=== PATIENT | female | born 2000 | race Caucasian/White ===

== ENCOUNTER → 2024-08-02 13:13 | Outpatient (BNVA) | payer OTHER, SELFPAY | DX: K21.9 Gastro-esophageal reflux disease without esophagitis (principal); E66.01 Morbid (severe) obesity due to excess calories; Z68.41 Body mass index [BMI] 40.0-44.9, adult; Z71.3 Dietary counseling and surveillance | CPT/HCPCS: 96127; 99202 ==

== ENCOUNTER → 2024-08-02 14:05 | Outpatient (AMB) | payer OTHER, SELFPAY ==
--- NOTE | 2024-08-02 13:18 | MHC.PC.OV ---
Vital Signs 08/02/24 13:20 Height 5 ft 4.17 in Weight 257 lb 6 oz BMI 43.9 BP 130/76 Blood Pressure Location Lt brachial Position Sitting Pulse 95 Pulse Source Pulse Oximeter Temp 97.7 F Temp Source Skin Pulse Oximetry (%) 100 Oxygen Delivery Method Room Air Intake Visit Reasons: establish care Intake Note: Patient is a new patient here to establish care for Anxiety, Obesity, Weight concern. Transferring care from [facility]. Medical records have not been requested and have not received. Chairman And Ceo Required: No Paper Control Clerk: Not Required per policy Accompanied by: Self / Same As Patient Allergies No Known Allergies Allergy (Verified 08/02/24 13:33) Medication List - Last Reconciled 08/02/24 by Danielle Membreno PA-C No Known Home Meds Tobacco use date assessed: 08/02/24 Dental Screening Dental Screen Date: 08/02/24 Did you have a dental visit in the last 12 months?: No Did you have a dental problem in the last 6 months where you did not have access to dental care?: No Was dental information given to patient?: No HPI establish care HPI Details 24 year old female coming to the office for the first time. Patient tells us today she has not had a PCP previously. She was following with an OB school year nanny during the her he has been this has not seen any other ophthalmic medical assistant. She has a history [facility] but has not been but on control and over a year. She has several concerns today the 1st being anxiety which he states his every day and limits her daily functioning. Her anxiety typically manifests as sweaty palms, abdominal pain and occasionally panic attacks. She also mentions concern for weight gain states she has had difficulty losing weight over the last several years and would like to pursue weight loss injections. Lastly she mentions having issues with acid reflux and was pretty occasion during her which helped with the reflux. [facility] Surgical History History of 2 sections Social History Housing: House Alcohol intake: never Patient Tobacco Use Status: Never used Tobacco e-Cigarette/Vaping Use: Currently Using Second Hand Smoke Exposure: No service: No Current occupational status: unemployed Cognitive needs: No Hearing needs: No Vision needs: No Female Reproductive History Menstrual control method: none Total pregnancies: 2 Full term: 2 History of abnormal pap smear: No Questionnaire PHQ-9 Over the last 2 weeks, how often have you been bothered by any of the following problems? 1. Little interest or pleasure in doing things: not at all 2. Feeling down, depressed, or hopeless: not at all 3. Trouble falling or staying asleep, or sleeping too much: not at all 4. Feeling tired or having little energy: several days 5. Poor appetite or overeating: not at all 6. Feeling bad about yourself - or that you are a failure or have let yourself or your family down: not at all 7. Trouble concentrating on things, such as reading the newspaper or watching television: not at all 8. Moving or speaking so slowly that other people could have noticed. Or the opposite - being so fidgety or restless that you have been moving around a lot more than usual: not at all 9. Thoughts that you would be better off or of hurting yourself in some way: not at all Total score: 1 Depression Screening Interpretation: Negative Depression Screening Done: Yes Source: Developed by Drs. Tae Garsia, Maria Alejandra Coffey, Álvaro Pa and colleagues, with an educational edgar from [employer]. Thrive Questionnaire Date Thrive assessed: 08/02/24 I am a: Patient What is your living situation today?: I have a steady place to live Within the past 12 months, did the food you bought not last and you didn't have the money to get more?: Never true Within the past 12 months, did you worry whether your food would run out before you got money to buy more?: Never true Do you have trouble paying for medicines?: No Do you have trouble getting transportation to medical appointments?: No Do you have trouble paying your heating and electricity bill?: No Do you have trouble taking care of your child, family member or friend?: No Do you have trouble with day-to-day activities such as bathing, preparing meals, shopping, managing finances, etc.?: No Are you currently unemployed and looking for a job?: No Are you interested in more education?: No Please select the resources that you would like help with: None Currently or been in a relationship where the following occur: No concerns reported THRIVE Score: 0 AUDIT C Alcohol Use Questionnaire (AUDIT-C) 1. How often do you have a drink containing alcohol?: Monthly or less 2. How many drinks containing alcohol do you have on a typical day when you are drinking?: 1 or 2 3. How often do you have six or more drinks on one occasion?: Never Total Score: 1 YESENIA-7 AMB Questionnaire YESENIA-7 Date YESENIA - 7 assessed: 08/02/24 Feeling nervous, anxious, or on edge: 2 = More than half the days Not being able to stop or control worryin = Several days Worrying too much about different things: 1 = Several days Trouble relaxin = Several days Being so restless that it is hard to sit still: 1 = Several days Becoming easily annoyed or irritable: 0 = Not at all Feeling afraid as if something awful might happen: 1 = Several days Total YESENIA-7 score (0-4 normal; 5-9 mild; 10-14 moderate; 15-21 severe): 7 Source: Developed by Drs. Tae Garsia, Maria Alejandra Coffey, Álvaro Pa and colleagues, with an educational edgar from [employer]. YESENIA-7 Assessment Billing YESENIA-7 Assessment Tool: YESENIA-7 Assessment 80274 Review of Systems Const Denies body aches, Denies chills, Denies fever(s), Denies headache(s) and Denies poor appetite Eyes Reports no additional complaints ENT Denies dizziness and Denies headache(s) Card Denies chest pain, Denies irregular heart rhythm, Denies lightheadedness and Denies dyspnea Resp Denies cough and Denies dyspnea GI Denies abdominal pain, Denies constipation, Reports dyspepsia, Reports heartburn, Denies diarrhea, Denies nausea and Denies vomiting Reports no additional complaints Musc Reports no additional complaints and Denies abnormal gait Skin/Breast Reports system reviewed and no additional complaints, except as documented Neuro Denies abnormal gait, Denies dizziness and Denies headache(s) Psych Reports anxiety Physical exam (Primary Care) Vital Signs: Last Vital Signs Temp 97.7 F 08/02/24 13:20 Pulse 95 08/02/24 13:20 BP 130/76 08/02/24 13:20 Pulse Ox 100 08/02/24 13:20 Oxygen Delivery Method Room Air 08/02/24 13:20 BMI result Body Mass Index 43.9 Tobacco/Smoking Status: Tobacco use Status Tobacco use date assessed 08/02/24 08/02/24 13:28 Patient Tobacco Use Status Never used Tobacco 08/02/24 13:28 e-Cigarette/Vaping Use Currently Using 08/02/24 13:28 PHQ-9: PHQ-9 Score PHQ-9: Total score 1 08/02/24 13:32 Depression Screening Interpretation: Negative Thrive Assessment: Date of Thrive Assessment Date Thrive assessed 08/02/24 08/02/24 13:28 Currently or been in a relationship where the following occur: No concerns reported Const General: cooperative, healthy appearing, comfortable and no acute distress Orientation/consciousness: patient oriented x3 HENMT Head: Yes normocephalic Ears: hearing grossly normal bilaterally General nose exam: Normal external nose present Eyes General: appearance normal, both eyes and all related structures Conjunctivae: conjunctivae normal Neck Neck: Yes full ROM and Yes no lymphadenopathy Resp Effort & Inspection: normal respiratory effort Auscultation: clear to auscultation bilaterally, no crackles, no rales, no rhonchi and no wheezes Cardio Rate: regular rate Rhythm: regular rhythm Skin General skin exam: no rashes or lesions noted Neuro General: patient oriented x3 Gait exam (Neuro): Normal gait present Extrem General: Yes normal to inspection, Yes full ROM and No edema Psych Affect: normal affect Attitude: cooperative Insight: Good insight present (Psych) Judgement: Good judgement present (Psych) Coding Level of Care Code New Pt Level 4 (05336) Diagnoses Anxiety F41.9 GERD (gastroesophageal reflux disease) K21.9 Morbid obesity with BMI of 40.0-44.9, adult E66.01; Z68.41 Additional Codes YESENIA-7 Assessment Billing - YESENIA-7 Assessment Tool: YESENIA-7 Assessment 41944 ([id number]) Assessment & Plan Assessment & Plan (1) Anxiety: Comment: Declines counseling 2024 Code(s): F41.9 - Anxiety disorder, unspecified Category: Medical Plan: Patient would like to hold off on counseling at this time. She would like to try medication for anxiety that helps with both anxiety and depression and does not have side effect of weight gain. I discussed several options including SSRIs which were declined at this time due to side effect of weight gain. Discussed starting Wellbutrin which helps primarily with depression but also can help with anxiety as well as smoking cessation. Prescription sent to the pharmacy and follow up in 2 months or sooner if patient would like re-evaluation. (2) GERD (gastroesophageal reflux disease): Code(s): K21.9 - Gastro-esophageal reflux disease without esophagitis Category: Medical Plan: Avoid trigger foods such as citrus, tomato products, soda, caffeine, spicy foods and other foods that may be irritating to your stomach. Avoid laying flat 3-4 hours after eating and elevate the head of the bed 30 degrees to prevent acid from moving into the esophagus. Started on famotidine at bedtime (3) Morbid obesity with BMI of 40.0-44.9, adult: Code(s): E66.01 - Morbid (severe) obesity due to excess calories; Z68.41 - Body mass index [BMI] 40.0-44.9, adult Category: Medical Plan: Healthy diet and regular exercise is encouraged. Patient was counseled today on the risks and benefits of GLP-1 injections as well as the dosing schedule. She has no family history or personal history of thyroid disease and no gallbladder disease. Discussed with the patient the potential GI side effects of this medication. Plan to have repeat blood work after one month of therapy to monitor kidney and liver function before increasing the dose of this medication. Plan to start on Wegovy 0.25 mg at this time advised patient she will need blood work prior to a dose increase. Follow up in 2 months for a weight check. Plan This note was constructed using voice recognition software. While every effort has been made to ensure accuracy and blasting contract miner, still areas may have been included sometimes these areas may affect the content or meeting of the given symptoms. Total time spent caring for the patient today was 30 minutes. This includes time spent before the visit reviewing the chart, time spent during the visit, and time spent after the visit and documentation. Orders: Orders Complete Blood Count Auto Diff Today Z00.00 - Encounter for general adult medical examination without abnormal findings Vitamin D 25-OH Total Today Z00.00 - Encounter for general adult medical examination without abnormal findings Comprehensive Met. Panel Today Z00.00 - Encounter for general adult medical examination without abnormal findings TSH reflex Free T4 Today Z00.00 - Encounter for general adult medical examination without abnormal findings Free T4 (Free Thyroxine) Today Z00.00 - Encounter for general adult medical examination without abnormal findings Vitamin B12 and Folate Today Z00.00 - Encounter for general adult medical examination without abnormal findings Referrals [employer]ENDING T[employer] T[employer]ER Referral Z12.4 - Encounter for screening for malignant neoplasm of cervix Medications: New nicotine (polacrilex) 2 mg buccal Q2H 20 ea 1RF bupropion HCl SR (Wellbutrin SR) 100 mg PO BID 2 months 120 tabs 0RF semaglutide (weight loss) (Wekrishvy) administer weeks 1 through 4 of therapy 0.25 mg (0.5 mL) subcut QWEEK 2 mL 0RF famotidine 20 mg PO BEDTIME 90 tabs 1RF
[2024-08-02 13:20] VITALS: BP 130/76; PULSE 95; TEMP 36.5; O2SAT 100; BMI 43.9
== END | disposition home or self-care (01) ==
DX: F41.9 Anxiety disorder, unspecified (principal); K21.9 Gastro-esophageal reflux disease without esophagitis; E66.01 Morbid (severe) obesity due to excess calories; Z68.41 Body mass index [BMI] 40.0-44.9, adult

== ENCOUNTER → 2024-10-03 11:32 | Outpatient (BNVA) | payer OTHER, SELFPAY | PROVIDERS: Visit Provider Surgery ==

== ENCOUNTER 2024-10-19 08:06 | Outpatient (AMB) | payer OTHER, SELFPAY ==
--- NOTE | 2024-10-19 13:30 | MHC.OFFVISWM ---
VS Expanded 10/19/24 14:07 Height 5 ft 4 in Weight 256 lb BMI 43.9 Body Fat % 46.7 Body Fat Mass 119.4 Fat Free Mass 136.4 Visceral Fat Rating 12 Body Water Mass 52.2 Basal Metabolic Rate/Score 1,975 Intake Visit Reasons: TV [facility]ST[facility] Allergies No Known Allergies Allergy (Verified 10/19/24 13:30) Medication List - Last Reconciled 10/19/24 by Pedro Luis Miranda MD bupropion HCl SR 100 mg PO BID 90 days famotidine 20 mg PO BEDTIME nicotine (polacrilex) 2 mg buccal Q2H HPI HPI TV [facility] PAST[facility]: Details: Start time: 1.19pm, End time: 2.19pm I spent 55 minutes speaking with the patient on the phone plus an additional 5 minutes reviewing and updating records for a total of 60 minutes HPI Comments Details: Previous weight loss efforts: intermittent fasting, keto diet Wakes up: 7am, Sleeps: 9pm Breakfast: skips Lunch: 12pm (sandwich, pizza) Dinner: 6pm (rice, beans, pork chops, pasta) Snacks: 10am (yogurt, ice cream), occasionally 4pm (desserts), 8pm (ice cream, popcorn) Exercise: none Beverages: Coffee: none, tea: occasionally, soda: none, juice: none, ETOH: 1-2/mth PFSH Surgical History History of 2 sections Social History Housing: House Alcohol intake: never Patient Tobacco Use Status: Never used Tobacco e-Cigarette/Vaping Use: Currently Using Second Hand Smoke Exposure: No service: No Current occupational status: unemployed Cognitive needs: No Hearing needs: No Vision needs: No Telehealth Telehealth Telehealth Platform: Telephone Location of provider rendering services: practice address Location of patient: address on file Patient Identification confirmed using: Name, : Yes Telehealth method: voice only Patient verbally consented to treatment: Yes Patient verbally consented to billing insurance company: Yes Patient informed of any privacy concerns related to visit: Yes Minutes spent on Phone/Video with Pt.: 60 Assessment & Plan Assessment & Plan (1) Morbid obesity with BMI of 40.0-44.9, adult: Code(s): E66.01 - Morbid (severe) obesity due to excess calories; Z68.41 - Body mass index [BMI] 40.0-44.9, adult Category: Medical Plan: 1. Plan for lap sleeve gastrectomy. If diaphragmatic or ventral hernias are present at time of surgery, these will be repaired laparoscopically as well. I emphasized the importance of close follow-up, adherence to instructions and good communication. The surgery does not replace the need to change your lifestlyle which is the cause of the obesity problem. The surgery provides the motivation to try again to change your lifestyle, it reduces the appetite and make the transition to a better lifestyle easier and doubles the amount of weight you would lose compared to doing the lifestyle change without the surgery. You will need to be on a liquid diet with protein shakes for 2 weeks before surgery to maximize weight loss and boost your nutritional status to recover better from surgery and also for the first two weeks after surgery to let the stomach heal before we introduce other foods. After the first 2 weeks we will introduce protein bars and soft foods like scrambled eggs, cottage cheese and yogurt and after the 6th week will introduce meat, fish and cooked vegetables in small amounts. Over time you should be able to eat everything in small amounts. Side effects like nausea, vomiting, heartburn or abdominal pain are not common in the practice unless you are not following in the practice. This operation requires lifetime commitment to following in our practice and communication with me. You will much less weight and experience side effects if you don?t communicate or not following in the practice. Complications are rare and in our practice is about 1/10 of the national average. However, you can develop bleeding that may require transfusion (hasn?t happened for year in the practice), you may from complications (we did not have any deaths in the practice) and infections. Infections are usually a result of breakdown in communication or not understanding or following directions correctly. They are difficult to treat, they can happen during the first 6 weeks, they may require to be in the hospital for weeks or even months, not being able to eat by mouth and you may have drains and surgeries to try and correct the issue. Other risks and complications include possible conversion to an open procedure, leaks, small bowel obstruction, blood clots, cardiac, or pulmonary complications, as terminal block assembler complications such as ulcers, insufficient weight loss and vitamin deficiencies. 2. Nutritional counseling. Start with one premade PREMIER protein (buy at [employer] or [employer]) shake (mix 4oz of Premier shake with 4oz low fat unsweetened almond milk each) at 8am-10am, 1 protein bar (Fit Crunch protein bars, buy at [employer] or [employer]) at 11am-1pm, another PREMIER shake (mix 4oz of Premier shake with 4oz low fat unsweetened almond milk each) at 2pm-4pm, dinner at 5pm (10 forks of protein and 10 forks of salad/vegetables) and one more protein bar after dinner at 7pm-9pm. So you do 2 protein shakes, 2.5 protein bars and one meal per day. Meal to include lean meat (beef, fish, pork, turkey, chicken), or canadian yogurt, or egg whites, or beans with a salad with olive oil and fruits (berries, pears, apples, kiwi). Avoid salt, breads, potatoes, rice, pasta, desserts. 3. You will receive a link of our software missy to generate an individualized nutritional and exercise plan specific for you. Please send me a screenshot of the plans you will generate 3. Each shake would be drunk slowly, like coffee in a period of 2 hours. 4. Cut each bar in 4 pieces and eat each piece in 30min to make each bar last 2 hours. 5. I emphasized the importance of measuring accurately the food portion and measure it when serving the food in plate 6. The meal portions include 10 full-size forks of meat and 10 full-size forks of salad. You always eat the meat portion but you can replace up to 5 forks for salad/vegetables with rice, potatoes or pasta, or a fruit if you like. The less you do it the better weight loss will be. 7. One full-size fork is what it can be scooped on the fork without falling aside and not what can be bit with the fork. Use regular forks like those you find in a typical restaurant. 8. Please buy the body composition scale we discussed and send me weight measurements as soon as possible and then once a week. Always include your diet and exercise plan. 9. Start walking outside daily, tracking calories with a goal of 300 calories per day, daily. Goal is to burn 2000 calories per week on exercise, which means either 300 calories daily, or 400 calories 5 days per week, or 500 calories 4 days per week, or 650 calories 3 days per week. 10. The best choice would be to purchase a stationary bike, elliptical or treadmill at home that can track calories. Let me know if you do so I can give you an exercise plan. 11. It is important of avoiding and for at least 18 months postoperatively and has been discussed at the infosession. 12. Goal is to lose at least 1.5-2lbs per week 13. Goal to lose 10% of your weight before surgery, which is about 26lbs. Ultimate weight goal: 230lbs before surgery 14. Please follow the diet plan exactly without any change. If you don't like something about the plan or you feel hungry you need to communicate with me so I can help you revise the plan. You should not change the plan yourself 15. To be scheduled for EGD to assess the stomach's anatomy. The possibility of biopsies was discussed. Patient needs to avoid use of NSAIDs and aspirin for 1 week prior to EGD. You must be on liquids only the day before your endoscopy. Risks of perforation and bleeding was discussed with the patient. This will be an outpatient procedure with IV sedation. 16. As of tomorrow, please send me a picture of your meal plate after you measure it, but before you consume it. 17. Start the Phentermine at 11am daily. We discussed the potential side-effects of the Phentermine such as irritability, dry mouth, difficulty sleeping, dizziness, numbness in feet and high blood pressure. I asked her to get a blood pressure monitor and measure the blood pressure daily in the morning and evening. She needs to send the blood pressure readings daily and to call the office for blood pressure over 140/80 and she understands that. Orders: Orders Complete Blood Count Auto Diff Today E66.01 - Morbid (severe) obesity due to excess calories, K21.9 - Gastro-esophageal reflux disease without esophagitis, Z68.41 - Body mass index [BMI] 40.0-44.9, adult IRON PROFILE Today E66.01 - Morbid (severe) obesity due to excess calories, K21.9 - Gastro-esophageal reflux disease without esophagitis, Z68.41 - Body mass index [BMI] 40.0-44.9, adult Zinc Today E66.01 - Morbid (severe) obesity due to excess calories, K21.9 - Gastro-esophageal reflux disease without esophagitis, Z68.41 - Body mass index [BMI] 40.0-44.9, adult C Reactive Protein Today E66.01 - Morbid (severe) obesity due to excess calories, K21.9 - Gastro-esophageal reflux disease without esophagitis, Z68.41 - Body mass index [BMI] 40.0-44.9, adult Vitamin B1 Today E66.01 - Morbid (severe) obesity due to excess calories, K21.9 - Gastro-esophageal reflux disease without esophagitis, Z68.41 - Body mass index [BMI] 40.0-44.9, adult TSH reflex Free T4 Today E66.01 - Morbid (severe) obesity due to excess calories, K21.9 - Gastro-esophageal reflux disease without esophagitis, Z68.41 - Body mass index [BMI] 40.0-44.9, adult Ferritin Today E66.01 - Morbid (severe) obesity due to excess calories, K21.9 - Gastro-esophageal reflux disease without esophagitis, Z68.41 - Body mass index [BMI] 40.0-44.9, adult US abdomen comp w elastography Today E66.01 - Morbid (severe) obesity due to excess calories, K21.9 - Gastro-esophageal reflux disease without esophagitis, Z68.41 - Body mass index [BMI] 40.0-44.9, adult FL upper GI w air Today E66.01 - Morbid (severe) obesity due to excess calories, K21.9 - Gastro-esophageal reflux disease without esophagitis, Z68.41 - Body mass index [BMI] 40.0-44.9, adult Insulin Today E66.01 - Morbid (severe) obesity due to excess calories, K21.9 - Gastro-esophageal reflux disease without esophagitis, Z68.41 - Body mass index [BMI] 40.0-44.9, adult Hemoglobin A1c Today E66.01 - Morbid (severe) obesity due to excess calories, K21.9 - Gastro-esophageal reflux disease without esophagitis, Z68.41 - Body mass index [BMI] 40.0-44.9, adult H Pylori Breath Test Today E66.01 - Morbid (severe) obesity due to excess calories, K21.9 - Gastro-esophageal reflux disease without esophagitis, Z68.41 - Body mass index [BMI] 40.0-44.9, adult Lipid Panel Today E66.01 - Morbid (severe) obesity due to excess calories, K21.9 - Gastro-esophageal reflux disease without esophagitis, Z68.41 - Body mass index [BMI] 40.0-44.9, adult Comprehensive Met. Panel Today E66.01 - Morbid (severe) obesity due to excess calories, K21.9 - Gastro-esophageal reflux disease without esophagitis, Z68.41 - Body mass index [BMI] 40.0-44.9, adult Vitamin B12 and Folate Today E66.01 - Morbid (severe) obesity due to excess calories, K21.9 - Gastro-esophageal reflux disease without esophagitis, Z68.41 - Body mass index [BMI] 40.0-44.9, adult Vitamin A Today E66.01 - Morbid (severe) obesity due to excess calories, K21.9 - Gastro-esophageal reflux disease without esophagitis, Z68.41 - Body mass index [BMI] 40.0-44.9, adult Vitamin D 25-OH Total Today E66.01 - Morbid (severe) obesity due to excess calories, K21.9 - Gastro-esophageal reflux disease without esophagitis, Z68.41 - Body mass index [BMI] 40.0-44.9, adult XR chest 2V Today E66.01 - Morbid (severe) obesity due to excess calories, K21.9 - Gastro-esophageal reflux disease without esophagitis, Z68.41 - Body mass index [BMI] 40.0-44.9, adult ECG 12 lead EKG Today E66.01 - Morbid (severe) obesity due to excess calories, K21.9 - Gastro-esophageal reflux disease without esophagitis, Z68.41 - Body mass index [BMI] 40.0-44.9, adult Referrals Nutrition/Dietitian Referral E66.01 - Morbid (severe) obesity due to excess calories, K21.9 - Gastro-esophageal reflux disease without esophagitis, Z68.41 - Body mass index [BMI] 40.0-44.9, adult Behavioral Health Referral E66.01 - Morbid (severe) obesity due to excess calories, K21.9 - Gastro-esophageal reflux disease without esophagitis, Z68.41 - Body mass index [BMI] 40.0-44.9, adult Medications: New phentermine must administer 30 minutes before or 1-2 hours after breakfast 37.5 mg PO DAILY 30 caps 0RF E66.01 - Morbid (severe) obesity due to excess calories, Z68.41 - Body mass index [BMI] 40.0-44.9, adult
[2024-10-19 14:07] VITALS: BMI 43.9
== END 2024-10-19 14:20 | disposition home or self-care (01) ==
LOC: HO.HBS 08:06
PROVIDERS: Visit Provider Surgery
DX: E66.01 Morbid (severe) obesity due to excess calories (principal); Z68.41 Body mass index [BMI] 40.0-44.9, adult; E66.813 Obesity, class 3
CPT/HCPCS: 99205

== ENCOUNTER 2024-11-08 12:40 | Outpatient (AMB) | payer OTHER, SELFPAY ==
--- NOTE | 2024-11-08 12:05 | A.OFFWM_ITS ---
Intake Intake Visit Reasons: TV BH Intake Allergies No Known Allergies Allergy (Verified 10/19/24 13:30) [facility] Surgical History History of 2 sections Social History Housing: House Alcohol intake: never Patient Tobacco Use Status: Never used Tobacco e-Cigarette/Vaping Use: Currently Using Second Hand Smoke Exposure: No service: No Current occupational status: unemployed Cognitive needs: No Hearing needs: No Vision needs: No Behavioral Health Assessment Weight Management Therapy Therapy Notes Details The patient is a 24-year-old female presenting for an initial behavi oral health assessment as part of the surgical weight loss program. She reports being referred by her primary care provider (PCP), following her own request for support. The patient shared that she has struggled with her weight for most of her life but noted that her current weight exceeds her previous baseline. She maintained a weight around 190 lbs for several years, but is now over 250 lbs, which has raised concerns about her overall health. Her primary goals for pursuing weight loss surgery include improving her physical health, increasing energy levels, becoming more active, and achieving a sustainable, healthy weight. She expressed a desire to feel less fatigued and to develop long-term lifestyle changes that support overall well-being. Presenting Concerns Referral Source WMP-Provider Reason for referral Completion of behavioral health assessment as part of process for weight-loss surgery. Precipitating Event Obesity. Living Situation Current Living Situation Rent At risk of losing current housing? No Satisfied with current living situation? Yes Comments PT currently rents a room at a friends home, and she lives with her 2 children. In the home only her friend lives there besides them. Social History Family history and relationship PT is a single mother of 2. Her children are 6 and 4. Parents are alive. On mom's side, she has 3 siblings, and 4 on dad's side. PT reports she has good family relationships, she is closer to her dad. 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 Developmental history and status None reported. Currently WNL. Social support Her parents, her aunt, and her siblings. Some Friends. Community support None. Holiness/Spirituality Family is Mandaen, but she doesn't practice. Cultural/Ethnic information . Father is Bulgarian. Mom mixed persian-uzbek. Legal Involvement and History Current or historical involvement with the legal system? None rorted. Education Highest grade completed 10th grade. Preferred learning style Written Currently enrolled in educational program? Yes Interested in further educational program? Yes Educational Interests/Skills PT just signed to complete [employer], will start in Fall. Interested in getting into the healthcare system, in nursing. 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 ) Wants help to find employment? No Meaningful activities Activities with kids, like going to the park, swimming. Listening to music. Financial Situation Describe current financial situation Comfortable and Occasional struggle Financial assistance? Food [place] Service Service? No Mental Health and Addiction Treatment Current/Past substance abuse? No Comments Alcohol: On Special events. Birthdays, holidays. 0-2 x month, Cigarettes/Tobacco: Nicotine-based Vaping. Uses 1 every hour. 1 pen last about a week. *Trying to quit. Cannabis/Edibles: None. Current/Past addictive behavior concerns? No Psychiatric history The patient reports briefly attending therapy in 3rd grade but does not recall the details of that experience. She has not participated in formal mental health treatment as an adult. However, she is currently prescribed Bupropion HCl SR 100 mg twice daily by her primary care provider, which she started approximately two months ago. The patient described a longstanding history of anxiety, which significantly impacted her functioning during adolescence. She reports that her anxiety was so severe that she was unable to complete school. Prior to initiating medication, she experienced intense symptoms, including an inability to leave the house, feeling safe only at home, and episodes of panic in public settings. While attending school, she would frequently wake up with physical symptoms of anxiety (e.g., stomach aches, sweaty palms), experience cognitive disruptions such as overthinking and dissociation ( zoning out ), and demonstrate behavioral signs of a freeze response. This led to progressive school avoidance, and ultimately, she discontinued her education after becoming at age 16. Since starting Bupropion, the patient reports notable improvement, including the cessation of panic attacks and increased ability to leave the house and engage in activities outside the home. However, she continues to struggle with anticipatory anxiety related to attending appointments and visiting others' homes. She describes intense fear of emergencies occurring, difficulty relaxing until she exits the situation, and cognitive spiraling (e.g., ?What if?? thought s) related to time management and perceived inability to complete upcoming tasks. She denies any history of psychiatric hospitalization, mental health crises, suicidal ideation, suicide attempts, self-harm, or intent to harm others. Questionnaires PHQ-9 Over the last 2 weeks, how often have you been bothered by any of the following problems? 1. Little interest or pleasure in doing things: not at all 2. Feeling down, depressed, or hopeless: not at all 3. Trouble falling or staying asleep, or sleeping too much: not at all 4. Feeling tired or having little energy: several days 5. Poor appetite or overeating: several days 6. Feeling bad about yourself - or that you are a failure or have let yourself or your family down: several days 7. Trouble concentrating on things, such as reading the newspaper or watching television: not at all 8. Moving or speaking so slowly that other people could have noticed. Or the opposite - being so fidgety or restless that you have been moving around a lot more than usual: not at all 9. Thoughts that you would be better off or of hurting yourself in some way: not at all Total score: 3 Depression Screening Interpretation: Negative (From new PT pack.) Depression Screening Done: Yes Source: Developed by Drs. Tae Garsia, Maria Alejandra Coffey, Álvaro Pa and colleagues, with an educational edgar from [employer]. Assessment & Plan Assessment & Plan (1) Anxiety disorder: Code(s): F41.9 - Anxiety disorder, unspecified (2) Panic disorder: Code(s): F41.0 - Panic disorder [episodic paroxysmal anxiety] (3) Pre-bariatric surgery psychological evaluation: Code(s): Z71.89 - Other specified counseling Plan Patient is not cleared at this time, as the behavioral health assessment is still in progress. She is scheduled to return in two weeks to continue the evaluation. Next Appointment: November 23, 2024, at 11:00 AM via telehealth. Telehealth Telehealth Telehealth Platform: [facility] Location of provider rendering services: other Location of patient: address on file Patient Identification confirmed using: Name, : Yes Telehealth method: video Patient verbally consented to treatment: Yes Patient verbally consented to billing insurance company: Yes Patient informed of any privacy concerns related to visit: Yes Minutes spent on Phone/Video with Pt.: 55 Coding Level of Care Code Established Pt Tele Psy Diag Gila ([id number]) Patient Type Established Diagnoses Anxiety disorder F41.9 Panic disorder F41.0 Pre-bariatric surgery psychological evaluation Z71.89 Time Spent (min) 55
== END 2024-11-08 13:00 | disposition home or self-care (01) ==
LOC: HO.HBST 12:40
PROVIDERS: Visit Provider Counselor Mental Health
DX: F41.9 Anxiety disorder, unspecified (principal); F41.0 Panic disorder [episodic paroxysmal anxiety]; Z71.89 Other specified counseling
CPT/HCPCS: 90791